=== PATIENT | female | born 2000 | race African-American/Black ===

== ENCOUNTER 2022-11-08 14:05 | Emergency (ER) | payer BC ==
[~2022-11-08] VITALS: Ht 152.4 cm; Wt 79.5 kg
[2022-11-08 14:07] VITALS: BP 117/73; TEMP 98.2; O2SAT 99
[2022-11-08] MEDS ORDERED: LIDOCAINE 1% MDV 20ML VIAL SC ONE (17:40)
[2022-11-08] MEDS ORDERED: NEOSPORIN OINT 0.9 GM PKT TOP ONE (17:40)
[2022-11-08] MEDS ORDERED: CEPH500C PO (18:13)
[2022-11-08] MEDS ORDERED: BACI500O8 TOP (18:13)
== END 2022-11-08 18:53 | disposition home or self-care (01) ==
LOC: M ED 14:05
DX: S01.81XA Laceration without foreign body of other part of head, initial encounter (principal); W01.198A Fall on same level from slipping, tripping and stumbling with subsequent striking against other object, initial encounter; Y92.830 Public park as the place of occurrence of the external cause; Z94.1 Heart transplant status

== ENCOUNTER 2023-06-02 09:57 | Emergency (ER) | payer BC, SELFPAY ==
[~2023-06-02] VITALS: Ht 152.4 cm; Wt 80.0 kg
[~2023-06-02 09:57] MED LIST: BACI500O8 TOP; CEPH500C PO
[2023-06-02] MEDS: NS 1,000 ML IV ONE (11:28)
[2023-06-02] MEDS: ACETAMINOPHEN 500 MG TAB PO ONE (11:28)
[2023-06-02 11:29] LABS: HEMATOCRIT 42.4 % (36.0-47.0); HEMOGLOBIN 13.6 g/dl (12.0-15.5); MEAN CORPUSCULAR HEMOGLOBIN 28.5 pg (27.0-33.0); MEAN CORPUSCULAR HGB CONC 32.1 g/dl (32.0-36.5); MEAN CORPUSCULAR VOLUME 88.9 fl (80.0-96.0); PLATELET COUNT, AUTOMATED 240 10^3/uL (150-450); RED BLOOD COUNT 4.77 10^6/uL (4.00-5.40); WHITE BLOOD COUNT 7.3 10^3/uL (4.0-10.0)
[2023-06-02 11:41] LABS: INR 0.92; PROTHROMBIN TIME 12.1 SECONDS (12.5-14.5)
[2023-06-02 11:42] LABS: PARTIAL THROMBOPLASTIN TIME 26.1 SECONDS (24.8-34.2)
[2023-06-02 11:44] LABS: D-DIMER QUANT < 0.27 ug/mL (<0.5)
[2023-06-02 11:58] LABS: CK-MB VALUE MASS < 1.0 NG/ML (<3.6); LIPASE 48 U/L (12-53)
[2023-06-02 12:01] LABS: ALBUMIN 3.6 G/DL (3.2-5.2); ALKALINE PHOSPHATASE 85 U/L (46-116); ALT/SGPT 12 U/L (7.0-40); AST/SGOT 10 U/L (<34); BILIRUBIN,DIRECT 0.2 MG/DL (<0.4); BILIRUBIN,TOTAL 0.5 MG/DL (0.3-1.2); BLOOD UREA NITROGEN 8 MG/DL (9-23); CALCIUM LEVEL 9.1 MG/DL (8.5-10.1); CARBON DIOXIDE LEVEL 26 MMOL/L (20-31); CHLORIDE LEVEL 110 MMOL/L (98-107); GLOMERULAR FILTRATION RATE > 60.0 (>60); GLUCOSE, FASTING 93 MG/DL (60-100); POTASSIUM SERUM 4.7 MMOL/L (3.5-5.1); SODIUM LEVEL 139 MMOL/L (136-145); TOTAL PROTEIN 6.6 G/DL (5.7-8.2)
[2023-06-02 12:02] LABS: FREE T4 0.91 NG/DL (0.89-1.76)
[2023-06-02 12:03] LABS: THYROID STIMULATING HORMONE 1.073 uIU/ML (0.55-4.78)
[2023-06-02 12:04] LABS: CPK CREATINE PHOSPHOKINASE 94 U/L (34-145); MB/CK RELATIVE INDEX 1.06 (< OR =4)
[2023-06-02] MEDS: MECLIZINE 25 MG TABLET PO ONE (13:47)
[2023-06-02] MEDS ORDERED: ISOVUE-370 76% 100ML VIAL As Ordered ONE (15:16)
[2023-06-02] MEDS: diphenhydrAMINE 50MG/ML VIAL IV ONE (15:43)
[2023-06-02] MEDS: methylPREDNISolone 125MG 2ML VIAL IV ONE (15:44)
[2023-06-02 16:01] VITALS: TEMP 97.7
[2023-06-02 16:04] VITALS: BP 166/90; O2SAT 100
[2023-06-02] MEDS: ONDANSETRON 4MG 2ML VIAL IV ONE (16:20)
[2023-06-02] MEDS: MORPHINE 2 MG/ML 1ML VIAL IV ONE (16:20)
[2023-06-02 16:25] LABS: CK-MB VALUE MASS < 1.0 NG/ML (<3.6)
[2023-06-02 16:26] LABS: CPK CREATINE PHOSPHOKINASE 92 U/L (34-145); MB/CK RELATIVE INDEX 1.08 (< OR =4)
[2023-06-02] MEDS ORDERED: HOME MED LIST COMPLETE! XX SCH (17:00)
[2023-06-02] MEDS ORDERED: MECL-209 PO (17:09)
== END 2023-06-02 17:24 | disposition left against medical advice (07) ==
LOC: M ED 09:57
DX: R42 Dizziness and giddiness (principal); R07.9 Chest pain, unspecified; R00.0 Tachycardia, unspecified; I49.3 Ventricular premature depolarization; J45.909 Unspecified asthma, uncomplicated; Z91.040 Latex allergy status; Z79.899 Other long term (current) drug therapy; Z53.9 Procedure and treatment not carried out, unspecified reason
CPT/HCPCS: 70450; 70496; 70498; 71045; 80048; 80076; 81001; 82550; 82553; 83690; 84439; 84443; 84484; 84702; 85027; 85379; 85610; 85730; 87486; 87581; 87633; 87798; 93005; 96361; 96374; 96375; 99284; J1200; J2930; Q9967